=== PATIENT | male | born 1955 | race Caucasian/White ===

== ENCOUNTER → 2018-07-20 16:09 | Outpatient (CLI) | payer OTHER, SELFPAY ==
[2018-07-20 16:42] LABS: Add Manual Diff / Slide Review NO; Basophils Percent Auto 0.6 % (0-2); Eosinophils Percent Auto 6.7 % (2-4); Hematocrit 44.2 % (41-53); Hemoglobin 15.2 g/dL (13.5-17.5); Lymphocytes Percent Auto 32.3 % (25-40); Mean Corpuscular HGB Conc 34.4 % (30-36); Mean Corpuscular Hemoglobin 32.5 PG (26-34); Mean Corpuscular Volume 94.5 fL (80-100); Monocytes Percent Auto 12.4 % (3-14); Neutrophils Absolute Auto 3500 /uL (3000-5900); Platelet Count 193 X10^3/uL (150-400); Red Blood Cell Count 4.68 X10^6/uL (4.5-5.9); Red Cell Distribution Width 13.4 % (11.6-14.8); White Blood Cell Count 7.3 X10^3/uL (4.5-11.0)
[2018-07-20 17:32] LABS: Blood Urea Nitrogen 17 mg/dL (9-20); Calcium 9.3 mg/dL (8.4-10.2); Carbon Dioxide 31 mmol/L (22-32); Chloride 102 mmol/L (98-107); Estimated Glomerular Filt Rate > 60.0 mL/min (>60); Glucose 85 mg/dL (80-110); HEMOLYSIS < 15 (0-50); Potassium 4.4 mmol/L (3.4-5.1); Sodium 143 mmol/L (137-145)
== END ==
PROVIDERS: Family Provider Internal Medicine; PCP Internal Medicine; Visit Provider Orthopaedic Surgery Orthopaedic Surgery of the Spine
DX: M48.02 Spinal stenosis, cervical region (principal)
CPT/HCPCS: 36415; 80048; 85025

== ENCOUNTER 2018-08-17 06:08 | Inpatient (IN) | payer OTHER, SELFPAY ==
[2018-07-20 08:38] VITALS: BMI 35.1
[2018-08-17] VITALS (21 sets, daily range): BP systolic 129–178; BP diastolic 85–102; PULSE 93–110; RESP 8–20; TEMP 36.3–37.6; O2SAT 9–99; BMI 35.1
--- NOTE | 2018-08-17 | DI.RAD.S_ITS ---
PROCEDURE: XR CERVICAL SPINE 2V OR 3V INDICATIONS: C3-4, C4-5, C5-6 ACDF TECHNIQUE: 2 views of the cervical spine were acquired. COMPARISON: [facility] [place], CR, SPINE CERVICAL MIN 4VW, 02/23/2015, 9:53. [facility] [place], MR, MR CERVICAL SPINE WITHOUT CONTRAST, 02/20/2018, 11:01. FINDINGS: 3 fluoroscopic intraoperative views of the cervical spine demonstrate postsurgical changes status post ACDF at C3-C6. Presumed endotracheal and nasogastric tubes are partially visualized. IMPRESSION: 1. Limited intraoperative fluoroscopic views obtained for surgical guidance demonstrate ACDF at C3-C6. A Dictated by: Nikolai Kwan M.D. on 08/17/2018 at 11:23 Approved by: Nikolai Kwan M.D. on 08/17/2018 at 11:40
[2018-08-17] MEDS: LACTATED RINGERS 1,000 ML 42 ML IV ×2 (06:50→09:27)
[2018-08-17] MEDS: CEFAZOLIN 2 GM/100 ML FROZ.PIGGY IV ×3 (08:04→23:58)
--- NOTE | 2018-08-17 08:42 | SUR.OPER ---
Supine on padded OR bed, head on jel donut, towel roll between shoulders, arms papoosed with gel pads and secured with draw sheet by towel clips. Legs uncrossed, safety belt at thigh, tape over blanket over lower legs . Pt. taped from shoulders to foot of bed by surgeon.
[2018-08-17] MEDS: BUPIVACAINE 0.25% W/ EPI VIAL 50 ML INJ (10:52)
[2018-08-17] MEDS: HYDROMORPHONE 2 MG INJ 0.5 MG IV ×2 (10:57→11:22)
--- NOTE | 2018-08-17 10:58 | PM.PREOP ---
Pre-operative Note Interval Note Pre-op Check: Yes History & Physical Reviewed by Physician, Yes Exam Performed and Yes History & Physical exam performed today by Physician Changes: No
--- NOTE | 2018-08-17 11:03 | P.OP_ITS ---
Operative Date/Time/Diagnoses Date of procedure: 08/17/18 Time of procedure: 08:07 Pre-op diagnosis: 1. C3-4, C4-5, C5-6 spinal stenosis 2. C3-4, C4-5, C5-6 spondylosis with radiculopathy Post-op diagnosis: same Procedure & Clinicians Procedure: 1. C3-4, C4-5, C5-6 anterior cervical diskectomy and fusion 2. C3-4, C4-5, C5-6 anterior interbody cage placement 3. C3-4, C4-5, C5-6 anterior instrumentation with plate and screw placement in C3-C4-C5-C6 vertebrae 4. Utilization of microsurgical technique and operating microscope Same procedure as scheduled: Yes Indications: Patient has been having chronic neck pain and worsening cervical radiculopathy. Patient failed multiple conservative management with worsening pain weakness and numbness in her upper extremity. Patient has been having difficulty performing activity of daily living. After discussing risks benefits of treatment options, patient elected proceed with surgery. Surgeon: Francesco Rosado [employer] Port Director: Rachel Ruvalcaba Click Yes if Unassisted: No Anesthesia Type: General Operative Notes Closure Type: primary Specimen(s): none sent Implants & Drains: Globus extend plate, PEEK cages Applied: catheter Estimated Blood Loss (mL): 50 Blood products transfused: none Procedure in detail: Patient was seen in the preoperative area. Risks and benefits of the surgery was discussed with the patient. Operative consent was obtained and placed in the chart. Patient was then taken to the operative room. Prophylactic antibiotic was given less than 0.5 hr prior to skin incision. General anesthesia was administered. Patient was placed into a supine position on her radiolucent table. Bilateral shoulders were taped down to allow proper C-arm imaging. Anterior cervical area was prepped and draped in a sterile fashion. Time-out was performed at this time. Using lateral C-arm imaging, the level between C3 and C6 was identified and marked on patient's neck. A oblique incision from midline towards medial border of sternocleidomastoid muscle was made. The platysma muscle was incised in line with skin incision. Metzenbaum scissor was used to develop the plane between the medial border of sternocleidomastoid d and the strap muscles medially. The carotid sheath and its contents were identified and protected behind the hand- held retractor during the entire case. The plane between the carotid sheath and strap muscles was developed with Metzenbaum scissors. Dissection was made down to the level of the anterior cervical fascia. Longus colli muscle was incised on the anterior aspect of vertebral bodies bilaterally from C3-C6. Spinal needle was placed into the C4-5 disc space and confirmed with lateral C-arm imaging. Using microsurgical technique and operative microscope, anterior cervical diskectomy was performed at C3-4, C4-5, C5-6 level. This was done by removing the disc material, removing the anterior and posterior osteophytes posterior longitudinal ligaments along with performing bilateral foraminotomies at all 3 levels. Patient was found to have severe central and foraminal stenosis at all 3 levels. Patient's stenosis was fully decompressed after decompression was completed. After the diskectomy was completed, 3 anterior interbody cages were obtained. The cages were packed with globus via cell bone grafting material. One cage each along with the bone grafting material was then packed into the interbody spaces from C3-6 with one cage into each interbody level. After the cages were placed, the anterior cervical plate was stabilized to the C3-6 vertebrae using 2 screws at each each level. Total 8 screws were placed. After confirming placement of the hardware with AP and lateral C-arm imaging, the screws were locked into the plate using the locking mechanism and torque limiting screwdriver. After the hardware was placed and confirmed with AP and lateral C-arm imaging, the wound was irrigated with sterile normal saline. The platysma muscle and the subcutaneous tissue was closed with 2-0 Vicryl. The skin was closed with 4- 0Monocryl and Steri-Strips. Patient tolerated the procedure well. Patient was transferred recovery room in stable condition. There were no complications. Complications: none Condition: stable Disposition: PACU Plan for aftercare: Admit to inpatient hospital
[2018-08-17] MEDS: LORazepam 2 MG/ML SYRINGE 0.5 MG IV (11:11)
--- NOTE | 2018-08-17 11:29 | SUR.PHASEI ---
responds to commands bilarlateral hand automatic dispenser mechanic and leg strengths strong and equal sensation present, color pink. c/o pain behind left shoulder minimally improved with pain medication and Lorazepam per orders. Does appear more relaxed able to relax and rest at times.
--- NOTE | 2018-08-17 11:45 | SUR.PHASEI ---
continues to c/o upper back and posterior neck pain medicated per orders.
--- NOTE | 2018-08-17 12:05 | SUR.PHASEI ---
continued apnic periods and decreased oxygen saturation. encouraged to take deep breaths with good response. discussed sleep apnea with patient states diagnosed as borderline several years ago prior to recent weight gain. Dr. wheeler called verbal report on current status and HX. RT consult ordered by Dr. Wheeler and intiated for recommended CPAP.
--- NOTE | 2018-08-17 12:21 | SUR.PHASEI ---
RT here CPAP initiated.
--- NOTE | 2018-08-17 12:33 | SUR.PHASEI ---
improved able to rest/sleep with CPAP in place. maintaining oxygen saturation 92 to 97% with CPAP and oxygen to CPAP at 3l/cannula.
--- NOTE | 2018-08-17 13:28 | PT.IPTN ---
Current Diagnoses Other spondylosis with radiculopathy, cervical region (08/17/18) Spinal stenosis, cervical region (08/17/18) Surgery Performed Operation Date: 08/17/18 07:45 Actual Procedures p C3-4, C4-5, C5-6 ACDF w/ Anterior Instrumentation - Francesco Rosado MD Physical Therapy Treatment Note M3 PT-IP Subjective Start: 08/17/18 13:26 Freq: NEEDED Status: Active Protocol: Document 08/17/18 13:26 (Rec: 08/17/18 13:28 [id number]) Subjective Physical Therapy Visit Type Notes Per RN, pt was having pain control issues and still very groggy post op. She had just medicated him and he was sleeping deeply. PT will attempt in the morning.
[2018-08-17] MEDS: SODIUM CHLORIDE 0.9% 1,000 ML 100 ML IV (15:01)
[2018-08-17] MEDS: METOPROLOL ER 25 MG TABLET PO (15:02)
--- NOTE | 2018-08-17 15:07 | PC.NURSE ---
post-op patient came to unit w/ 3l/nc bleed in via cpap. tolerated for about 1.5 hrs while sleeping off and on and drowsy, then woke up panicked w/ claustrophobia demanding it be removed. placed patient on cont pulse ox and 3l/nc with sats >92%. hypertensive w/ mild tachycardia. patient and spouse report he did not take his metoprolol this am. obtained order to give dose, see emar. tolerating ice water. no nausea. scd's on. ivf infusing. report given to neil dinh rn.
[2018-08-17] MEDS: OXYCODONE IR 10 MG TABLET PO ×2 (16:06→23:58)
[2018-08-17] MEDS: hydrOXYzine pamoate 25 MG CAPSULE PO ×2 (16:07→21:08)
--- NOTE | 2018-08-17 17:22 | PT.IPTN ---
Current Diagnoses Other spondylosis with radiculopathy, cervical region (08/17/18) Spinal stenosis, cervical region (08/17/18) Surgery Performed Operation Date: 08/17/18 07:45 Actual Procedures p C3-4, C4-5, C5-6 ACDF w/ Anterior Instrumentation - Francesco Rosado MD Physical Therapy Treatment Note M3 PT-IP Subjective Start: 08/17/18 13:26 Freq: NEEDED Status: Active Protocol: Document 08/17/18 17:18 RALEIGH (Rec: 08/17/18 17:22 RALEIGH [id number]) Subjective Physical Therapy Visit Type Notes Patient refused to participate to PT at this time as he feels nauseated and fatigue. Pt agreeable to participate in PT tomorrow. Nurse in-charged informed about the refusal.
--- NOTE | 2018-08-17 18:48 | PC.NURSE ---
Assumed care of pt from outgoing shift at 1500 this day. Pt sleep but arouses to voice. does dose off after a few seconds of not talking. Pt has delisa. patent. emptied. Pt compliant. dressing c./d.i. Pt has soft collar on. Pt uses call light. given snack. complained of pain and given meds per MAR. discussed pain scale and pain med options and pt requested ot have oxycodone. Pt states he is comfortable. on 2.5L NC. remaining around 97% on that. pt turned down and tolerates. taught how to use IS. pt stated he felt hot and removed some blankets and encouraged IS use. Pt does well with IS. will continue to monitor. bed alarm on. side rails upx3. will continue to monitor.
[2018-08-17] MEDS: PRAVASTATIN 20 MG TABLET 40 MG PO (21:09)
[2018-08-17] MEDS: DOCUSATE 100 MG CAPSULE PO (21:09)
[2018-08-17] MEDS: SENNOSIDES 8.6 MG TABLET 17.2 MG PO (21:09)
[2018-08-17] MEDS: ACETAMINOPHEN 325 MG TABLET 650 MG PO (21:09)
[2018-08-18] MEDS: SODIUM CHLORIDE 0.9% 1,000 ML 100 ML IV (02:20)
--- NOTE | 2018-08-18 02:47 | PC.NURSE ---
Addendum entered by Lizbeth Juárez R.N. 08/18/18 06:09: States pain is minimal at 1-2/10 and declines pain med. Did request and was provided new ice pack. Remains on oxygen at 1L/min with sat of 96% Original Note: Patient is alert and oriented. Breath sounds CTA with sat of 98% on oxygen at 1L/min per NC. Tried decreasing O2 to 0.5L/min but sat dropped < 92 so back on 1L/min. HRR. BP elevated at 140/88. Denies nausea. BT present and has passed flatus. Indwelling catheter is patent and urine is pale yellow. CMS intact. Anterior neck dressing is CDI. Wearing soft cervical collar. Complained of 6/10 pain at beginning of shift with most of pain being in posterior neck so ice applied which he states has really helped and now rates pain as 2/10. Is able to turn self in bed. CMS intact. Wearing bilateral SCD's. Fall risk score is moderate; bed alarm is activated.
[2018-08-18 04:04] VITALS: BP 149/79; PULSE 83; RESP 18; TEMP 36.4; O2SAT 96
[2018-08-18 06:35] LABS: Hematocrit 42.3 % (41-53); Hemoglobin 14.5 g/dL (13.5-17.5)
[2018-08-18 08:24] VITALS: BP 158/93; PULSE 79; RESP 18; TEMP 36.7; O2SAT 96
[2018-08-18] MEDS: DOCUSATE 100 MG CAPSULE PO (08:27)
[2018-08-18 08:28] VITALS: BP 158/93; PULSE 81
[2018-08-18] MEDS: METOPROLOL ER 25 MG TABLET PO (08:28)
[2018-08-18] MEDS: SODIUM CHLORIDE 0.9% FLUSH 10 ML IV (08:30)
--- NOTE | 2018-08-18 09:21 | ST.IPSCREEN ---
Swallow screen completed per protocol. Patient denies any difficulty with swallowing or communication. Provided patient written education on voice and swallowing changes following ACDF surgery.
--- NOTE | 2018-08-18 09:55 | PC.NURSE ---
Addendum entered by Ayana Delong R.N. 08/18/18 11:15: C.Demar BHATT aware of pt's high BP. No new orders. Pt to d/c and follow up with patient access specialist. Pt has voided since hercules D/C and awaiting P.T clearance. Original Note: Pt A&Ox3. Reporting discomfort to posterior neck, ice pack applied and wearing soft collar. Refusing pain medications at this time. D/C'D 1L/NC, RA 98%. Anterior neck drsg CDI. Bilateral grain trader equal/strong, denies numbness/tingling. Hercules D/C'D ~0840 by SN witnessed by this RN. I.S up to 2500. Pt working with P.T/O.T awaiting clearance to d/c home with spouse.
--- NOTE | 2018-08-18 09:58 | OT.IP.EVAL ---
Current Diagnoses Other spondylosis with radiculopathy, cervical region (08/17/18) Spinal stenosis, cervical region (08/17/18) Surgery Performed Operation Date: 08/17/18 07:45 Actual Procedures p C3-4, C4-5, C5-6 ACDF w/ Anterior Instrumentation - Francesco Rosado MD Past Medical History (Last Updated 07/20/18 @ 09:14 by Irma Mackay RN) RLS (restless legs syndrome) (Chronic 2004) CTS (carpal tunnel syndrome) (Chronic 1999) Atherosclerosis of [place] coronary artery of [place] heart without angina pectoris (Chronic 11/30/13) Hypogonadism in male (Chronic) Mixed hyperlipidemia (Chronic) Major depression in remission (Chronic) Presence of stent in coronary artery (Chronic 08/29/15) Malignant neoplasm of scalp and skin of neck (Resolved) Asthma (Acute) Easy bruisability (Acute) HTN (hypertension) (Acute) Low back pain (Acute) Myocardial infarction (Acute) Neck pain (Acute) Seasonal allergies (Acute) Skin cancer (Acute) Tingling of both upper extremities (Acute) Colon polyps (Resolved 10/25/16) Fractures (Resolved 2004) Melanoma (Resolved) Surgical History (Last Updated 07/20/18 @ 08:47 by Irma Mackay RN) History of tonsillectomy and adenoidectomy (Acute) Anesthesia (Resolved) History of angioplasty (Resolved 11/2013) History of colonoscopy with polypectomy (Resolved 10/25/16) Occupational Therapy Inpatient Evaluation/Re-Eval M1 PT/OT-IP Prior Functional Status Start: 08/17/18 13:26 Freq: NEEDED Status: Active Protocol: Document 08/18/18 11:41 NFW (Rec: 08/18/18 12:10 NFW [id number]) Medical Review Prior Functional Status Medical History Reviewed Yes Diet/Fluid Consistency Regular Communication Patient's present during treatment. Mobility and Gait Patient prior to surgery did not require any assistive devices in ambulation. Attempts to walk ~ 3 miles regularly. Activities of Daily Living and IADL's Prior to surgery patient independent in all self care despite UE weakness and numbness. Stated that he struggled with showering especially with UE and upper back. Prior Functional Level (Other details) Patient drives, will hold on driving post surgery for at least two weeks. Social History Household Members spouse Living Arrangements House Number of Floors (Floors) One Floor Number of Stairs To Enter/Railing? One step to enter home, no hand rails. Employment Status Retired M2 OT-IP Current Condition Start: 08/18/18 14:15 Freq: Status: Active Protocol: Document 08/18/18 09:58 PJM (Rec: 08/18/18 14:37 PJM [id number]) Occupational Therapy Current Condition Current Condition Evaluation Date 08/18/18 Treatment Diagnosis decreased self care after C3-6 ACDF Diagnosis Onset Date 08/17/18 Post Operative Precautions Cervical Spine Precautions Soft Collar for Comfort No Heavy Lifting Log Roll Other Precautions 5# lifting restriction per P.A . d/c orders M3 OT- IP Subjective and Pain Start: 08/18/18 14:15 Freq: Status: Active Protocol: Document 08/18/18 09:58 PJM (Rec: 08/18/18 14:37 PJM [id number]) OT- Subjective Occupational Therapy Visit Type Type Initial Evaluation Visit Start Time 09:20 Visit Stop Time 09:58 Total Visit Minutes 38 Occupational Therapy Visit Comments Patient/Caregiver Goals to go home today OT Pain Assessment Pain When Pain Assessed At Rest Pain Present Pain Present Pain Reported Location neck Intensity 1 Scale Used Numeric (1 - 10) Description Aching Acute M4 OT- IP ADL's Start: 08/18/18 14:15 Freq: Status: Active Protocol: Document 08/18/18 09:58 PJM (Rec: 08/18/18 14:37 PJM [id number]) OT QAC-Omps-Pidycwg General Evaluation Diet Level for Self-Feeding soft diet recommended Self-Feeding Ability Independent OT ADL-Grooming General Evaluation Grooming Ability Independent Comments OT Grooming Comments provided education re: body mechanics standing at sink OT ADL-Oral Care General Eval Oral Care Ability Independent Comments Oral Care Comments provided education re: body mechanics standing at sink OT ADL-Dressing General Eval Upper Body Dressing Ability Independent Lower Body Dressing Ability Independent Areas Needing Assistance Socks Assistive Devices Dressing Assistive Devices Mainspring Former Brace End Sock Aid Comments OT Dressing Comments Pt has difficulty donning/ doffing R sock due to RLE stiffness at hip/kness. Provided education re: use of pilot plant operator and sock aid and pt indep after education with adaptive equipment. Online resources provided for obtaining equipt. can also assist PRN. OT ADL-Toileting General Evaluation Toileting Ability Independent OT ADL-Bathing Bathing Type Bathing Type Shower General Evaluation Bathing Ability Standby Assistance Devices Bathing Equipment Long Handled Sponge or Cameron Comments OT Bathing Comments to assist PRN; recommend long bath sponge; educated re: body mechanics and ways to keep incision dry M5 OT- IP IADL's Start: 08/18/18 14:15 Freq: Status: Active Protocol: Document 08/18/18 09:58 PJM (Rec: 08/18/18 14:37 [facility] NR) OT-Instrumental Activities of Daily Living Deficits IADL Deficits Identified Deficits Home Safety Awareness Awareness of Need for Assistance at Home Good Awareness Ability to Problem Solve Emergency Able to Problem Solve Situations Medication Management Medication Management No Deficits Identified Money Management Money Management No Deficits Identified Meal Preparation Meal Preparation Caregiver Provides Assist Meal Preparation Comments to assist PRN Forms Analyst Forms Analyst No Deficits Identified Forms Analyst Comments to assist PRN Driving Driving Caregiver Provides Assist Driving Comments to assist PRN until pt able M6 OT- IP Functional Cognition Start: 08/18/18 14:15 Freq: Status: Active Protocol: Document 08/18/18 09:58 PJM (Rec: 08/18/18 14:37 [facility] NR) Cognitive Factors Limiting Selfcare Function Cognitive Ability Level of Alertness Alert Patient Orientation Name Age Birthday Month Date Year Day of Week Place Situation Attention Span Ability Capable of Focused Attention Ability to Follow Commands Able to Follow One Step Commands Able to Follow Multi-Step Commands Memory Description No Deficits Noted Safety Awareness No Deficits Noted Problem Solving Ability No deficits Noted Executive Function Ability No Deficits Noted Abstract Thinking Ability No Deficits Noted Cognitive Comments Cognitive Assessment Comments Pt recalls and applies C spine precautions after education. Cognition appears WNL OT- Vision and Hearing OT- Hearing Assessment OT- Hearing Assessment WFL OT- Vision Assessment Vision Assessment Comments Pt denies any recent vision changes. M7 OT- IP Mobility and Balance Start: 08/18/18 14:15 Freq: Status: Active Protocol: Document 08/18/18 09:58 PJM (Rec: 08/18/18 14:37 [facility] [id number]) OT-Transfer Assessment Sit to and From Stand Sit to and from Stand Independent Technique Transfer Destination Bed Car Chair Transfer Technique Stand Step Pivot Devices Transfer Assistive Devices None Comments Mobility Comments Provided education re: car transfer technique OT- Gait Assessment Comments Gait Ability Comments did not occur, see P.T. notes OT- Balance Assessment Sitting Balance and Reactions Static Sitting Balance Ability Normal Dynamic Sitting Balance Ability Normal Standing Balance and Reactions Static Standing Balance Ability Normal Dynamic Standing Balance Ability Good M8 OT- IP Objective Assessments Start: 08/18/18 14:15 Freq: Status: Active Protocol: Document 08/18/18 09:58 PJM (Rec: 08/18/18 14:37 PJM [id number]) OT Gross Range of Motion Upper Extremity Range of Motion Assessment Within Functional Limits ROM Impairments End ranges not fully tested due to recent C spine surgery OT Strength Upper Extremity Strength Assessment Within Functional Limits Hand Overnight Stocker Strength Hand Dominance Right Comments Strength Comments Slightly decreased mm strength in B finger intrinsics noted; R worse than L. MMT not completed in shoulders due to recent C spine surgery OT- Coordination Assessment Comments Coordination Comments BUE WFL for self care, buttoning, zipping pants this session OT-Muscle Tone Assessment Muscle Tone WNL Yes OT Sensation Assessment Comments Summary Comments Pt reports numbness in B hands much better since surgery and no longer has radiating pain into shoulders and elbows. Edema Edema Absent Edema Comments BUES WNL M9 OT- IP Assessment and Plan Start: 08/18/18 14:15 Freq: Status: Active Protocol: Document 08/18/18 09:58 PJM (Rec: 08/18/18 14:37 PJ [id number]) OT Summary Assessment and Plan Potential Rehabilitation Potential Good Summary OT Impairments Pain Assessment Summary Low complexity OT assessment and all OT education completed today re: C spine precautions , body mechanics and adapted ADLS. here for education at end of session. Pt plans to d/c home today with 24 hr assist from supportive . No further OT services needed. Frequency of Treatment Frequency Of Treatment Discharge Discharge Recommendations OT Discharge Recommendations Home with 24/7 Assist Home Equipment Needs recommend pilot plant operator, sock aid, long bath sponge; pt to obtain these on line
[2018-08-18] MEDS: ACETAMINOPHEN 325 MG TABLET 650 MG PO (10:22)
[2018-08-18 10:26] VITALS: BP 152/92; PULSE 73
--- NOTE | 2018-08-18 10:48 | CM.DANOTE ---
DCP/continued: Reviewed chart. FORM BUILDER HELPER met with patient this AM to explain CM/SW role. Patient reports that he plans to discharge home this AM. Patient indicates that he was completely I in ADL's prior to surgery. Patient resides with supportive spouse. At this time there are no anticipated d/c planning needs. Therapy expected to evaluate this AM. P: Anticipate home, continue to follow if needs were to arise. OBIE Ahmadi Discharge Planning/Care Management CM Discharge Assessment Start: 08/17/18 15:28 Freq: Status: Active Protocol: Document 08/17/18 15:28 KJS (Rec: 08/17/18 15:34 KJS [id number]) Discharge Planning Assessment Assigned Interdisciplinary Professor OBIE Ahmadi Contact Information Valentine Hess (spouse) [phone] Advance Directives? No: Declines further information History Provided By Patient Significant Other Medical Record Has Patient been admitted in last 30 No days? Prior Living Arrangements House Household Members spouse Caregiver for Another No Comment Pending. Patient admitted today for spine surgery with Dr. Rosado. Referrals Initiated Other Additional Comment Unclear at this time Comment Attempted to meet with patient this AM. Patient had not came up from surgery as of 9:00AM. CM team to complete assessment on 08-18-18. Review Status In Process Please Provide Date Initial DC 08/17/18 Assessment Was Performed Next Review Type Continued Stay Review Document 08/18/18 10:45 KJS (Rec: 08/18/18 10:48 KJS [id number]) Discharge Planning Assessment Assigned Interdisciplinary Professor OBIE Ahmadi Contact Information Valentnie Hess (spouse) Advance Directives? No: Declines further information History Provided By Patient Significant Other Medical Record Has Patient been admitted in last 30 No days? Prior Living Arrangements House Household Members spouse Type of transporation used prior to Drives own vehicle admit Comment Patient reports that he is I at baseline. Independent with ADL's Yes Is patient alert and oriented? Yes Caregiver for Another No Comment No DME used prior to admit. Barriers to Discharge No Comment Pending. Patient admitted today for spine surgery with Dr. Rosado. Discharge Plan Home Referrals Initiated None needed Other Additional Comment Therapy evaluation pending. Anticipate no needs. Comment Attempted to meet with patient this AM. Patient had not came up from surgery as of 9:00AM. CM team to complete assessment on 08-18-18. Review Status In Process Please Provide Date Initial DC 08/17/18 Assessment Was Performed Next Review Type Continued Stay Review Pre-Anesthesia Assessment Start: 07/20/18 08:38 Freq: Status: Complete Protocol: Document 07/20/18 08:38 CAB (Rec: 07/20/18 09:24 CAB [id number]) Pre-Anesthesia Assessment Patient Information Reviewed Via Phone Assessment Assessment Completed With Patient Consent for Planned Operative Procedure( Yes s) Verified Lab Results EKG Primary Care Provider Edmundo Raymond Seen Specialist in Last 12 Months Yes Specialist Seen Floorleader Office Secretary Orthopedist Primary Language [employer] Mail List Librarian Required No Height 180.34 cm Weight 114.305 kg Body Mass Index (BMI) 35.1 Hearing Ability Normal Visual Assist Glasses Dentition Type Teeth, Natural Present Barriers to Learning None Other Aids No Hx Anesthesia Reactions No Hx Family Anesthesia Reaction No Hx Malignant Hyperthermia No Hx Blood Transfusions No Anesthesia Review Requested No Copy Chief No alcohol intake current alcohol intake frequency holidays/special occasions only Smoking Status Never smoker Substance Use Type does not use Pain Present Pain Reported Musculoskeletal Symptoms Back Pain Limited Range of Motion Neck Pain Radiating Pain into Limb History of Falling (Recent or History of Yes ) Patient is completely paralyzed or No completely immobile Mental Status Oriented to own ability Is patient on oxygen? No Does patient have EAST/SOB No Hx Sleep Apnea No Suspected Sleep Apnea No Currently Taking a Beta Andra No Can You Climb a Flight of Stairs Without Yes SOB Hx Chest Pain Yes: [facility] '14 Hx SOB No Hx Syncope or Dizziness No Anti-Coagulant Therapy Yes: Aspirin 81mg/daily Has a Floorleader Yes: Dr. Nelson Cardiac Testing No Hx Pacemaker/ICD No Pacemaker Rep Required? No Cardiac Clearance Received Yes Comment Cardiology note/clearance 07/17 to med records to be scanned Diet Type At Home Regular dysphagia No Bladder Pattern Frequency Urinary Catheter Present No Hx Urinary Self Catheterization No Diabetes No Hx Drug Resistant Organism No Presence of External or Internal Medical Yes Devices Comment Cardiac stent Have you traveled outside the [facility] in the last 30 days? Marital Status Lives With spouse Prior Living Arrangements House Number of Floors (Floors) One Floor Number of Stairs To Enter/Railing? 1 step, no railing Support System Child/Children Family Friend(s) Spouse Does the Patient Have Assistance After Yes Surgery Patient Discharge Plan Description Return Home Comment Pt advised overnight length of stay per surgeon's office Feels Safe in Current Environment Yes Been Physically Hurt or Threatened By a No Person in Current Environment Do you have thoughts of harming yourself None or others? Are you currently considering suicide? No Do you have a plan to hurt yourself or No Plan others? Do You Have Any Spiritual Beliefs That No May Affect Your HC Choices? Do You Have Any Cultural Practices That No May Affect Your HC Choices? Spiritual Referral None Comment LDS Who Can We Speak to About Patient's Care Family, friends Identifying Code for Release of Patient Declines to issue Information Health Care Proxy/Next of Kin Emilie () Health Care Proxy Phone Number Home: Cell: Emergency Contact Name Emilie () Emergency Contact Phone Number Home: Cell: Advance Directives? No: Declines further information Power of Crop Or Livestock Tenant Farmer Yes Power of Crop Or Livestock Tenant Farmer Name Emilie () Power of Crop Or Livestock Tenant Farmer Phone Number Home: Cell: PAC Instructions Durable medical equipment Medications to take/avoid Nasal antibiotic No ETOH/petroleum product on skin DOS NPO Post-op transportation Pre-surgical wash Sturdy shoes/comfortable clothes Do not bring valuables and remove jewelry
--- NOTE | 2018-08-18 12:11 | PT.IIE ---
Current Diagnoses Other spondylosis with radiculopathy, cervical region (08/17/18) Spinal stenosis, cervical region (08/17/18) Surgery Performed Operation Date: 08/17/18 07:45 Actual Procedures p C3-4, C4-5, C5-6 ACDF w/ Anterior Instrumentation - Francesco Rosado MD Surgical History (Last Updated 07/20/18 @ 08:47 by Irma Mackay RN) History of tonsillectomy and adenoidectomy (Acute) Anesthesia (Resolved) History of angioplasty (Resolved 11/2013) History of colonoscopy with polypectomy (Resolved 10/25/16) Medical History (Last Updated 07/20/18 @ 09:14 by Irma Mackay RN) RLS (restless legs syndrome) (Chronic 2004) CTS (carpal tunnel syndrome) (Chronic 1999) Atherosclerosis of osage coronary artery of osage heart without angina pectoris (Chronic 11/30/13) Hypogonadism in male (Chronic) Mixed hyperlipidemia (Chronic) Major depression in remission (Chronic) Presence of stent in coronary artery (Chronic 08/29/15) Malignant neoplasm of scalp and skin of neck (Resolved) Asthma (Acute) Easy bruisability (Acute) HTN (hypertension) (Acute) Low back pain (Acute) Myocardial infarction (Acute) Neck pain (Acute) Seasonal allergies (Acute) Skin cancer (Acute) Tingling of both upper extremities (Acute) Colon polyps (Resolved 10/25/16) Fractures (Resolved 2004) Melanoma (Resolved) Physical Therapy Inpatient Evaluation/Re-Eval M1 PT/OT-IP Prior Functional Status Start: 08/17/18 13:26 Freq: NEEDED Status: Discharge Protocol: Document 08/18/18 11:41 NFW (Rec: 08/18/18 12:10 NFW [id number]) Medical Review Prior Functional Status Medical History Reviewed Yes Diet/Fluid Consistency Regular Communication Patient's present during treatment. Mobility and Gait Patient prior to surgery did not require any assistive devices in ambulation. Attempts to walk ~ 3 miles regularly. Activities of Daily Living and IADL's Prior to surgery patient independent in all self care despite UE weakness and numbness. Stated that he struggled with showering especially with UE and upper back. Prior Functional Level (Other details) Patient drives, will hold on driving post surgery for at least two weeks. Social History Household Members spouse Living Arrangements House Number of Floors (Floors) One Floor Number of Stairs To Enter/Railing? One step to enter home, no hand rails. Employment Status Retired M2 PT-IP Current Condition Start: 08/17/18 13:26 Freq: NEEDED Status: Discharge Protocol: Document 08/18/18 11:41 NFW (Rec: 08/18/18 12:10 NFW [id number]) Physical Therapy Current Condition Current Condition Evaluation Date 08/18/18 Treatment Diagnosis C3-4, 4-5, 5-6 Spinal Stenosis and Spondylosis; s/p anterior fusion 08/17/18 Precautions Cervical Spine Precautions Soft Collar for Comfort Soft Collar at all Times Rigid Collar No Heavy Lifting Log Roll Other Precautions Discussion sleeping postures sidelying and supine. Discussion finding the neutral posture with sitting activities. Weight Bearing Status Weight Bearing Status Full Weight Bearing M3 PT-IP Subjective Start: 08/17/18 13:26 Freq: NEEDED Status: Discharge Protocol: Document 08/18/18 11:41 NFW (Rec: 08/18/18 12:10 NFW [id number]) Subjective Physical Therapy Visit Type Type Initial Evaluation Visit Start Time 11:00 Visit Stop Time 11:40 Total Visit Minutes 40 Number of AUTOMATIC EMBROIDERY MACHINE TENDER Visits 0 Physical Therapy Visit Comments Patient Comments Feels good, mainly experiencing soreness at surgery site. Patient Goals Return home with . Therapy Pain Assessment Pain When Pain Assessed During Mobility Pain Present Pain Present Pain Reported Location neck Description Tender M4 PT-IP Mobility and Gait Start: 08/17/18 13:26 Freq: NEEDED Status: Discharge Protocol: Document 08/18/18 11:41 NFW (Rec: 08/18/18 12:10 NFW [id number]) PT-Bed Mobility Assessment Rolling Type of Rolling Log Rolling Roll to Right Roll to Left Level of Assist Independent Supine to Sit Supine to Sit Independent Sit to Supine Sit to Supine Independent Scooting Scooting to Edge of Bed Independent Scooting Up and Down in Bed Independent PT-Transfer Assessment Sit to and From Stand Sit to and from Stand Independent Equipment Transfer Assistive Device None Orthotic/Prosthetic Devices or Brace: No Transfers Transfer Destination Bed Chair Transfer Technique Stand Step Pivot Transfer Ability Level of Assist Independent Comments Mobility Comments Shown proper technique up and down from bed and chair without excessive use of UE but emphasis on LEs. Instruction with throughout bed mobilities with emphasis on protecting the c-spine. Gait Assessment Gait Gait Assistance Required: Independent Distance (Feet) 500 Assistive Devices Assistive Device None Orthotic/Prosthetic Devices or Brace: No Gait Deviations General Gait Pattern Within Normal Limits Comments Gait Comments Discussion resuming his home walking program, increasing distance and pace on a gradual basis. Not to carry anything with walks. To swing UEs freely at side. M5 PT-IP Objective Assessments Start: 08/17/18 13:26 Freq: NEEDED Status: Discharge Protocol: Document 08/18/18 11:41 NFW (Rec: 08/18/18 12:10 [facility] [id number]) Orientation Orientation/Cognition Level of Alertness Alert Language Function Ability No Deficits Noted Safety Awareness Understands Safety Issues Memory Description No Deficits Noted Gross Range of Motion Upper Extremity ROM Assessment Within Functional Limits Impairments Guarded with ROM, patient pleased with his ability to raise arm one at a time overhead. Strength Comments Strength Comments Last Inserter strength is good with left slightly weaker than right. Decreased left thumb extension compared to right. M6 PT-IP Treatment Start: 08/17/18 13:26 Freq: NEEDED Status: Discharge Protocol: Document 08/18/18 11:41 NFW (Rec: 08/18/18 12:10 [facility] [id number]) Physical Therapy Treatment Education Education Provided Precautions Safety M7 PT-IP Assessment and Plan Start: 08/17/18 13:26 Freq: NEEDED Status: Discharge Protocol: Document 08/18/18 11:41 NFW (Rec: 08/18/18 12:10 [facility] [id number]) PT Summary Assessment and Plan Potential Rehabilitation Potential Excellent Status of Condition at Evaluation Stable Summary Impairments Pain ROM Strength Activity Tolerance Progress Towards Goals Progressing Toward Goals Assessment Summary Patient much more comfortable post surgery and has noticed return of mobility and strength into BUEs. Patient and receptive to all educational material provided. Goals Bed Mobility Goal Independent Transfer Goal Independent Gait Goal Independent Days to Meet Goals 1 Frequency of Treatment Frequency Of Treatment Discharge Recommendations To Nursing Amount of Assist Needed Independent Discharge Recommendations PT Discharge Recommendations Home Other Discharge Recommendations Patient returning home with .
== END 2018-08-18 11:50 | disposition home or self-care (01) | DRG 473 ==
PROVIDERS: Admitting Provider Orthopaedic Surgery Orthopaedic Surgery of the Spine; Family Provider Internal Medicine; PCP Internal Medicine; Visit Provider Orthopaedic Surgery Orthopaedic Surgery of the Spine
PROC: 0RG20A0 Fusion of 2 or more Cervical Vertebral Joints with Interbody Fusion Device, Anterior Approach, Anterior Column, Open Approach (ICD-10-PCS; principal; 2018-08-17 07:45)
DX: M48.02 Spinal stenosis, cervical region (principal); M47.22 Other spondylosis with radiculopathy, cervical region; I25.10 Atherosclerotic heart disease of native coronary artery without angina pectoris; I10 Essential (primary) hypertension; J45.909 Unspecified asthma, uncomplicated; G25.81 Restless legs syndrome; F32.9 Major depressive disorder, single episode, unspecified; E78.5 Hyperlipidemia, unspecified
CPT/HCPCS: 36415; 72040; 76001; 85014; 85018; 97116; 97161; 97165; 97530; 97535; C1776; J0330; J0690; J1100; J1170; J2060; J2250; J2405; J2704; J3010

== ENCOUNTER → 2019-03-15 08:56 | Outpatient (CLI) | payer OTHER, SELFPAY ==
[2018-08-17 13:20] VITALS: BMI 35.1
[2019-03-15 10:01] LABS: Alanine Aminotransferase 24 IU/L (21-72); Albumin 4.1 g/dL (3.5-5.0); Albumin Globulin Ratio 1.5 (1.0-2.8); Alkaline Phosphatase 43 U/L (38-126); Aspartate Aminotransferase 30 IU/L (17-59); BUN Creatinine Ratio 13.6 (6-22); Bilirubin Total 0.9 mg/dL (0.2-1.3); Blood Urea Nitrogen 15 mg/dL (9-20); Calcium 9.2 mg/dL (8.4-10.2); Carbon Dioxide 31 mmol/L (22-32); Chloride 102 mmol/L (98-107); Cholesterol 118 mg/dL (140-199); Estimated Glomerular Filt Rate > 60.0 mL/min (>60); Globulin 2.8 g/dL (1.7-4.1); Glucose 94 mg/dL (80-110); HDL Cholesterol 29 mg/dL (40-60); HEMOLYSIS < 15 (0-50); LDL Cholesterol Calculated 48 mg/dL (<100); Potassium 4.1 mmol/L (3.4-5.1); Sodium 140 mmol/L (137-145); Total Protein 6.9 g/dL (6.3-8.2); Triglycerides 206 mg/dL (35-150)
[2019-03-15 10:28] LABS: Prostate Specific Antigen Scrn 0.916 ng/mL (0.1-4.0)
[2019-03-17 21:11] LABS: Sex Hormone Binding Globulin 59 nmol/L (22-77); Testosterone, Bioavailable 30.4 ng/dL (110.0-575.0); Testosterone, Total 207 ng/dL (250-1100); Testosterone,Free 15.8 pg/mL (46.0-224.0)
[2019-03-22 12:45] LABS: Albumin 4.2
== END ==
PROVIDERS: PCP Internal Medicine; Visit Provider Internal Medicine
DX: E78.2 Mixed hyperlipidemia (principal); I25.10 Atherosclerotic heart disease of native coronary artery without angina pectoris; Z12.5 Encounter for screening for malignant neoplasm of prostate
CPT/HCPCS: 36415; 80053; 80061; 82040; 84270; 84403; G0103

== ENCOUNTER → 2019-10-18 14:48 | Outpatient (CLI) | payer OTHER, SELFPAY ==
[2018-08-17 13:20] VITALS: BMI 35.1
[2019-10-18 15:17] LABS: Add Manual Diff / Slide Review NO; Basophils Absolute Auto 100 /uL (0-100); Eosinophils Absolute Auto 400 /uL (0-450); Eosinophils Percent Auto 7.1 % (2-4); Hematocrit 44.4 % (41-53); Hemoglobin 15.6 g/dL (13.5-17.5); Lymphocytes Absolute Auto 2100 /uL (1100-4500); Lymphocytes Percent Auto 33.6 % (25-40); Mean Corpuscular HGB Conc 35.1 % (30-36); Mean Corpuscular Hemoglobin 32.5 PG (26-34); Mean Corpuscular Volume 92.7 fL (80-100); Monocytes Absolute Auto 800 /uL (0-900); Monocytes Percent Auto 13.4 % (3-14); Neutrophils Absolute Auto 2800 /uL (1500-7000); Neutrophils Percent Auto 44.9 % (50-75); Platelet Count 187 X10^3/uL (150-400); Red Blood Cell Count 4.79 X10^6/uL (4.5-5.9); Red Cell Distribution Width 13.5 % (11.6-14.8); White Blood Cell Count 6.2 X10^3/uL (4.5-11.0)
[2019-10-18 15:32] LABS: Alanine Aminotransferase 22 IU/L (<50); Albumin 4.3 g/dL (3.5-5.0); Albumin Globulin Ratio 1.7 (1.0-2.8); Alkaline Phosphatase 46 U/L (38-126); Aspartate Aminotransferase 32 IU/L (17-59); BUN Creatinine Ratio 10.8 (6-22); Bilirubin Total 0.7 mg/dL (0.2-1.3); Blood Urea Nitrogen 14 mg/dL (9-20); Calcium 8.9 mg/dL (8.4-10.2); Carbon Dioxide 28 mmol/L (22-32); Chloride 103 mmol/L (98-107); Creatine Kinase 206 U/L (55-170); Estimated Glomerular Filt Rate 55.9 mL/min (>60); Globulin 2.6 g/dL (1.7-4.1); Glucose 93 mg/dL (80-110); HEMOLYSIS < 15 (0-50); Potassium 4.4 mmol/L (3.4-5.1); Sodium 139 mmol/L (137-145); Total Protein 6.9 g/dL (6.3-8.2)
== END ==
PROVIDERS: PCP Internal Medicine; Visit Provider Internal Medicine
DX: E29.1 Testicular hypofunction (principal); E78.2 Mixed hyperlipidemia; M79.10 Myalgia, unspecified site
CPT/HCPCS: 36415; 80053; 82550; 85025

== ENCOUNTER → 2020-04-20 07:53 | Outpatient (CLI) | payer OTHER, SELFPAY ==
[2018-08-17 13:20] VITALS: BMI 35.1
[2020-04-20 09:14] LABS: Alanine Aminotransferase 21 IU/L (<50); Albumin 4.1 g/dL (3.5-5.0); Albumin Globulin Ratio 1.6 (1.0-2.8); Alkaline Phosphatase 44 U/L (38-126); Aspartate Aminotransferase 32 IU/L (17-59); BUN Creatinine Ratio 13.8 (6-22); Bilirubin Total 0.7 mg/dL (0.2-1.3); Blood Urea Nitrogen 15 mg/dL (9-20); Calcium 9.2 mg/dL (8.4-10.2); Carbon Dioxide 29 mmol/L (22-32); Chloride 105 mmol/L (98-107); Cholesterol 127 mg/dL (140-199); Estimated Glomerular Filt Rate > 60.0 mL/min (>60); Globulin 2.6 g/dL (1.7-4.1); Glucose 100 mg/dL (80-110); HDL Cholesterol 31 mg/dL (40-60); HEMOLYSIS < 15 (0-50); LDL Cholesterol Calculated 60 mg/dL (<100); Potassium 4.1 mmol/L (3.4-5.1); Sodium 140 mmol/L (137-145); Total Protein 6.7 g/dL (6.3-8.2); Triglycerides 182 mg/dL (35-150)
[2020-04-20 09:43] LABS: Prostate Specific Antigen Scrn 0.792 ng/mL (0.1-4.0)
[2020-04-25 15:08] LABS: Percent Free Testosterone 1.13 % (1.50-4.20); Testosterone Total 97.2 ng/dL (264.0-916.0)
== END ==
PROVIDERS: PCP Internal Medicine; Referring Provider Internal Medicine; Visit Provider Internal Medicine
DX: E29.1 Testicular hypofunction (principal); E78.2 Mixed hyperlipidemia; I25.10 Atherosclerotic heart disease of native coronary artery without angina pectoris; Z12.5 Encounter for screening for malignant neoplasm of prostate
CPT/HCPCS: 36415; 80053; 80061; 84402; 84403; G0103

== ENCOUNTER → 2021-06-05 09:05 | Outpatient (CLI) | payer OTHER, SELFPAY ==
[2018-08-17 13:20] VITALS: BMI 35.1
[2021-06-05 09:51] LABS: Alanine Aminotransferase 26 IU/L (<50); Albumin 3.9 g/dL (3.5-5.0); Albumin Globulin Ratio 1.3 (1.0-2.8); Alkaline Phosphatase 45 U/L (38-126); Aspartate Aminotransferase 38 IU/L (17-59); BUN Creatinine Ratio 12.9 (6-22); Bilirubin Total 0.6 mg/dL (0.2-1.3); Blood Urea Nitrogen 15 mg/dL (9-20); Calcium 9.2 mg/dL (8.4-10.2); Carbon Dioxide 29 mmol/L (22-32); Chloride 105 mmol/L (98-107); Cholesterol 165 mg/dL (140-199); Estimated Glomerular Filt Rate > 60.0 mL/min (>60); Globulin 2.9 g/dL (1.7-4.1); Glucose 97 mg/dL (80-110); HDL Cholesterol 27 mg/dL (40-60); HEMOLYSIS < 15 (0-50); LDL Cholesterol Calculated 89 mg/dL (<100); Potassium 4.1 mmol/L (3.4-5.1); Sodium 137 mmol/L (137-145); Total Protein 6.8 g/dL (6.3-8.2); Triglycerides 245 mg/dL (35-150)
[2021-06-05 10:20] LABS: Prostate Specific Antigen Scrn 1.49 ng/mL (0.1-4.0)
[2021-06-12 09:20] LABS: Percent Free Testosterone 3.78 % (1.50-4.20); Testosterone Free 25.43 ng/dL (5.00-21.00); Testosterone Total 672.7 ng/dL (264.0-916.0)
== END ==
PROVIDERS: PCP Internal Medicine; Referring Provider Internal Medicine; Visit Provider Internal Medicine
DX: E78.2 Mixed hyperlipidemia (principal); I25.10 Atherosclerotic heart disease of native coronary artery without angina pectoris; Z95.5 Presence of coronary angioplasty implant and graft; Z12.5 Encounter for screening for malignant neoplasm of prostate; E29.1 Testicular hypofunction
CPT/HCPCS: 36415; 80053; 80061; 84402; 84403; G0103

== ENCOUNTER → 2021-11-07 08:18 | Outpatient (CLI) | payer OTHER, SELFPAY ==
[2018-08-17 13:20] VITALS: BMI 35.1
[2021-11-07 09:03] LABS: Cholesterol 181 mg/dL (140-199); HDL Cholesterol 45 mg/dL (40-60); LDL Cholesterol Calculated 120 mg/dL (<100); Triglycerides 79 mg/dL (35-150)
== END ==
PROVIDERS: PCP Internal Medicine; Referring Provider Internal Medicine Cardiovascular Disease; Visit Provider Internal Medicine Cardiovascular Disease
DX: I25.10 Atherosclerotic heart disease of native coronary artery without angina pectoris (principal)
CPT/HCPCS: 36415; 80061

== ENCOUNTER → 2021-11-22 09:49 | Outpatient (CLI) | payer OTHER, SELFPAY ==
[2018-08-17 13:20] VITALS: BMI 35.1
--- NOTE | 2021-11-22 | DI.ECHO.S_ITS ---
[place] [facility]---------+ [facility] +---------+ : : [address] : : : : [id number] : : : : Phone: [phone] Echocardiogram Report + + :Name: GINETTE ALVAREZ Study Date: 11/22/2021 Height: 71 in : :[facility] ReadingLocation: Weight: 256 lb : : Gender: Male BSA: 2.3 m2 : :: 1955 Age: 66 yrs BP: 140/93 mmHg: :Reason For Study: CAD : :Ordering Physician: : :LACY Performed By: Khris Llamas : :Referring: JUAQUIN NELSON : + + Interpretation Summary The study quality was technically difficult. The ejection fraction is estimated to be 45-50%. Apical hypokinesis. There is mild mitral regurgitation. There is mild aortic regurgitation. Procedure: A two-dimensional transthoracic echocardiogram with color flow and Doppler was performed. Comparison is made with the echocardiogram of 07/26/2019. The study quality was technically difficult. The patient was in normal sinus rhythm during the exam. Left Ventricle: The left ventricle is normal in size and wall thickness. The ejection fraction is estimated to be 45-50%. Apical hypokinesis. Right Ventricle: The right ventricle is normal in size and function. Atria: The left atrial size is normal. Borderline right atrial enlargement. There is no Doppler evidence for an interatrial shunt. Mitral Valve: The mitral valve is normal. There is mild mitral regurgitation. Aortic Valve: The aortic valve is trileaflet. The aortic valve opens well. The aortic valve is mildly calcified. There is mild aortic regurgitation. Tricuspid Valve: The tricuspid valve is normal. There is a trace or physiologic amount of tricuspid regurgitation. Pulmonic Valve: The pulmonic valve leaflets are thin and pliable; valve motion is normal. There is a trace or physiologic amount of pulmonic regurgitation. Great Vessels: The aortic root is normal size. The ascending aorta is normal in size. The aortic arch is normal in size. The IVC is of normal diameter and collapses greater than 50% with a sniff. This suggests a low right atrial pressure of 3 mm Hg. Pericardium/ Pleura There is no pericardial effusion. There is an anterior echo-free space consistent with a fat pad. There is no pleural effusion. MMode/2D Measurements & Calculations LVIDd: 4.1 cm LVOT diam: 2.2 cm LVIDs: 2.8 cm Ao root diam: 3.4 cm FS: 31.7 % asc Aorta Diam: 3.3 cm IVSd: 1.2 cm Ao Arch Diam (Prox Trans): 3.0 cm LVPWd: 0.90 cm LV dela cruz. diameter/BSA (cm/m^2): 1.8 LV sys. diameter/BSA (cm/m^2): 1.2 LA A2 area: 21.2 cm2 RA long axis: 5.5 cm LA A4 area: 10.4 cm2 LA length (vol): 5.3 cm LA vol: 35.1 ml LA vol index: 15.0 ml/m2 LVLs ap4: 6.7 cm LVLd ap2: 8.3 cm LVLs ap2: 7.0 cm TAPSE_phl: 2.4 cm Doppler Measurements & Calculations Ao V2 max: 94.7 cm/sec LVOT Max Ajay: 87.5 cm/sec Ao V2 mean: 71.7 cm/sec LV V1 max P.1 mmHg Ao max P.0 mmHg LV V1 VTI: 18.4 cm Ao mean P.0 mmHg TOMAS(I,D): 3.3 cm2 Ao V2 VTI: 21.1 cm TOMAS(V,D): 3.5 cm2 sev ratio: 0.87 TOMAS indexed to BSA (cm^2/m^2): 1.4 MV E max ajay: 44.6 cm/sec PA V2 max: 76.4 cm/sec MV A max ajay: 66.0 cm/sec PA V2 mean: 61.1 cm/sec MV E/A: 0.68 PA mean P.0 mmHg Med Peak E' Ajay: 3.9 cm/sec PA pr(Accel): 7.9 mmHg E/E' med: 11.5 Lat Peak E' Ajay: 4.5 cm/sec E/E' lat: 10.0 E/e' average: 10.8 MV dec time: 0.31 sec SV(LVOT): 69.9 ml AV VR_phl: 0.92 TOMAS(VTI)/BSA_phl: 1.4 MV P1/2t-pr_phl: 90.0 msec Reading Physician:01:24 PM
== END ==
PROVIDERS: PCP Internal Medicine; Referring Provider Internal Medicine Cardiovascular Disease; Visit Provider Internal Medicine Cardiovascular Disease
DX: I25.10 Atherosclerotic heart disease of native coronary artery without angina pectoris (principal); I08.0 Rheumatic disorders of both mitral and aortic valves
CPT/HCPCS: 93306